=== PATIENT | female | born 1985 | race Caucasian/White ===

== ENCOUNTER 2023-05-06 21:43 | Emergency (ER) | payer OTHER, SELFPAY ==
[2023-05-06 22:27] VITALS: BP 126/80; PULSE 75; RESP 18; TEMP 37.5; O2SAT 98; BMI 21.9
--- NOTE | 2023-05-06 23:38 | ED_ITS ---
HPI - General Adult General Chief complaint: Ear/Nose/Throat Problem Stated complaint: L Ear Infection Time Seen by Provider: 05/06/23 22:24 History of Present Illness HPI narrative: on/off couple weeks of ear pain bilat, worse in L ear down jaw. states dtrs have ear infections. been using OTC ear drops, some relief but tonight started throbbing bad with ear drops. 2030 took either ibu or tylenol - not sure which. 37-year-old woman presenting to the emergency department with complaint of your pain. Has been having ear pain on and off now for a couple of weeks both sides; historically ever since an infection seems to be more sensitive in this left ear. Tried tea tree oil drops of some form today which seemed to flare the pain. No fever. No drainage. [id number] either ibuprofen or acetaminophen has not really helped the pain. Admittedly though having some improvement in discomfort in the time that she has been waiting to be seen in busy department. Denies current dental problems. No fever. No swimming. Related Data Previous Rx's Medication Instructions Recorded fluocinolone acetonide oil 0.01 % 5 drp Otic (ear-left) BID 7 days 05/07/23 ear drops (DermOtic Oil) #20 mL Allergies Allergy/AdvReac Type Severity Reaction Status Date / Time No Known Drug Allergies Allergy Verified 05/06/23 22:30 Review of Systems Status of ROS: Reports: 6 or more systems reviewed and unremarkable except as noted in History and below [facility] Medical History No significant past medical history Surgical History (Updated 05/06/23 @ 22:46 by Chuck Gonsalves RN) No significant past surgical history Social History Smoking Status: Never smoker Second hand tobacco smoke exposure: No How often do you have a drink containing alcohol: never How often do you have six or more drinks on one occasion: Never AUDIT-C Alcohol total score: 0 Non-prescribed substance use: denies use Exam Narrative: Exam Narrative: Pleasant. NAD. Face without swelling erythema or tenderness. Extraocular movements are full and appear to be without pain. No cervical lymphadenopathy. Oropharynx without swelling or dental problems. No TMJ area pain. Right TM unremarkable. A little sore to manipulation of the left tragus. Slight erythema of the tympanic membrane and the canal without edematous changes. Const: Vital Signs, click to edit/add: Vital Signs - 24 hr 05/06/23 22:27 Temperature 99.5 F Pulse Rate [Pulse Oximeter] 75 Respiratory Rate 18 Blood Pressure [Ri ght Upper Arm] 126/80 Pulse Oximetry 98 Oxygen Delivery Me thod Room Air Documenting provider has reviewed patient's vital signs: yes Course Vital Signs Vital signs: Initial Vital Signs Temperature 99.5 F 05/06/23 22:27 Temperature Source Temporal Artery Scan 05/06/23 22:27 Pulse Rate 75 05/06/23 22:27 Respiratory Rate 18 05/06/23 22:27 Blood Pressure 126/80 05/06/23 22:27 Blood Pressure Mean 95 05/06/23 22:27 Blood Pressure Position Sitting 05/06/23 22:27 Pulse Oximetry 98 05/06/23 22:27 Oxygen Delivery Method Room Air 05/06/23 22:27 Vital Signs Temperature 99.5 F 05/06/23 22:27 Pulse Rate 75 05/06/23 22:27 Respiratory Rate 18 05/06/23 22:27 Blood Pressure 126/80 05/06/23 22:27 Pulse Oximetry 98 05/06/23 22:27 Oxygen Delivery Method Room Air 05/06/23 22:27 Temperature 98.3 F 05/07/23 00:05 Pulse Rate 79 05/07/23 00:05 Respiratory Rate 18 05/07/23 00:05 Blood Pressure 118/78 05/07/23 00:05 Pulse Oximetry 98 05/07/23 00:05 Oxygen Delivery Method Room Air 05/07/23 00:05 Medical Decision Making MDM Narrative Medical decision making narrative: Does not seem to have significant eustachian tube dysfunction nasopharyngeal congestion. I think most likely explanation is some degree of underlying otitis externa type symptoms that were amplified by a stringent/tea tree oil. Without more significant findings I do not think I would recommend antibiotics at this time. Might benefit from topical/steroid drops. does not appear to be dental in origin. Intermittent nature would suggest congestive/eustachian tube symptoms perhaps. See patient discharge plan Discharge Plan Discharge Clinical Impression: Acute otalgia Condition: Improved Additional Instructions: Stay well-hydrated. If you had nasopharyngeal congestion I would consider taking pseudoephedrine for drying/decongestion. You do not seem that congested however. Yes, given what you told me I would suspect that the garlic containing drops would be less irritating than the tea tree ones. Can take up to 800 mg of ibuprofen or up to 1000 mg of acetaminophen per dose. Alternative to the ibuprofen might be up to 500 mg of naproxen 2 times daily. The ear drops you might fill if still having discomfort over the next day. If feeling much better tomorrow morning, don't worry about it at this time. Should you decide to start them, place the drops and stay with left ear up for about 10 minutes following placement. Then can set a cotton ball in the outer aspect of your ear. [email or web address] Prescriptions: New fluocinolone acetonide oil [DermOtic Oil] 0.01 % drops 5 drp Otic (ear-left) BID 7 Days Qty: 20 0RF Stand Alone Forms: [facility] Info Instructions
[2023-05-07 00:05] VITALS: BP 118/78; PULSE 79; RESP 18; TEMP 36.8; O2SAT 98
== END 2023-05-07 00:05 | disposition home or self-care (01) ==
PROVIDERS: Emergency Provider Family Medicine
DX: H92.02 Otalgia, left ear (principal)
CPT/HCPCS: 99283; 99284